=== PATIENT | male | born 1960 | race Caucasian/White ===

== ENCOUNTER → 2016-10-25 | Outpatient (CLI) | payer OTHER ==
[~2016-10-25] MED LIST: ASMANEX TW110 MCG/AC IH; ASPI325T6 PO; COUMADIN PO; DAILY VITAMIN1 TAB PO; DOXYCYCLINE 10100 MG PO; MEN'S MULTIVITA1 TAB PO; MULTAQ400 MG PO; OMEGA-3 FISH1200 MG PO; PREVACID 30MG30 M1 PO; SINGULAIR10 MG PO; XARELTO20 MG PO; ZITHROMAX500 M2 PO; ZYLOPRIM 300MG300 MG PO
== END ==
LOC: COL.RAD 07:39
DX: K22.8 Other specified diseases of esophagus (principal); M25.78 Osteophyte, vertebrae